=== PATIENT | male | born 1985 | race African-American/Black ===

== ENCOUNTER 2020-11-07 15:01 | Emergency (ER) | payer SELFPAY ==
[~2020-11-07] VITALS: Ht 185.4 cm; Wt 70.0 kg
[2020-11-07 15:21] VITALS: BP 132/85
[2020-11-07] MEDS ORDERED: METHOCARBAMOL 500MG TABLET PO ONE (17:00)
[2020-11-07] MEDS ORDERED: KETOROLAC 60MG/2ML VIAL IM ONE (17:00)
[2020-11-07] MEDS ORDERED: METH-773 MT (18:13)
[2020-11-07] MEDS ORDERED: NAPR-681 MT (18:13)
== END 2020-11-07 18:48 | disposition home or self-care (01) ==
LOC: ER 15:01
DX: S16.1XXA Strain of muscle, fascia and tendon at neck level, initial encounter (principal); Z88.1 Allergy status to other antibiotic agents; V43.62XA Car passenger injured in collision with other type car in traffic accident, initial encounter; Y93.89 Activity, other specified; Y92.488 Other paved roadways as the place of occurrence of the external cause
CPT/HCPCS: 96372; 99283; J1885